=== PATIENT | female | born 1990 | race Two or more races ===

== ENCOUNTER 2025-07-04 05:40 | Day surgery (SDC) | payer MEDICAID, SELFPAY ==
[2025-07-02 08:39] VITALS: BMI 34.1
[2025-07-02 09:55] LABS: Basophils # (Auto) 0.0 Thou/mm3 (0.0-0.2); Basophils % (Auto) 0 % (0-2.5); Eosinophils # (Auto) 0.1 Thou/mm3 (0.0-0.5); Eosinophils % (Auto) 1 % (0-10); Hematocrit 41.3 % (36.0-46.0); Hemoglobin 13.6 g/dL (12.0-16.0); Immature Granulocytes Auto 0.02 Thou/mm3 (0.00-0.00); Lymphocytes # (Auto) 1.7 Thou/mm3 (1.0-4.8); Lymphocytes % (Auto) 29 % (10-50); Mean Corpuscular HGB Conc 32.9 g/dl (31.0-37.0); Mean Corpuscular Hemoglobin 30.9 pg (25.0-35.0); Mean Corpuscular Volume 94 fL (80-100); Monocytes # (Auto) 0.5 Thou/mm3 (0.0-0.8); Monocytes % (Auto) 8 % (0-12); Neutrophils # (Auto) 3.5 Thou/mm3 (1.8-7.7); Neutrophils % (Auto) 62 % (37-80); Nucleated Red Blood Cell # 0.00 Thou/mm3 (0.00-0.00); Nucleated Red Blood Cell % 0 /100 WBC (0); Platelet Count 276 Thou/mm3 (140-440); RDW Standard Deviation 43.7 fL (36.4-46.3); Red Blood Count 4.40 Miln/mm3 (4.00-5.20); White Blood Count 5.8 Thou/mm3 (3.6-11.0)
[2025-07-02 10:02] LABS: INR 1.0 (0.9-1.3); Partial Thromboplastin Time 28.1 Seconds (22.0-36.0); Prothrombin Time 10.4 Seconds (9.0-12.2)
[2025-07-02 10:06] LABS: HCG,Qualitative Serum Negative
[2025-07-02 10:08] LABS: Anion Gap 10 (7-16); BUN/Creatinine Ratio 18 Ratio (12-20); Blood Urea Nitrogen 14 mg/dL (9-23); Calcium 9.0 mg/dL (8.3-10.6); Carbon Dioxide 26.2 mMol/L (20.0-31.0); Chloride 106 mMol/L (98-107); Creatinine (Component) 0.8 mg/dL (0.6-1.3); Estimated Creatinine Clearance 105.8 mL/min (>60); Glucose 95 mg/dL (74-106); Osmolality,Calculated 283 (275-295); Potassium 4.3 mMol/L (3.4-5.1); Sodium 142 mMol/L (136-145); eGFR > 60 See Note
[2025-07-04] VITALS (7 sets, daily range): BP systolic 103–122; BP diastolic 64–86; PULSE 71–90; RESP 14–20; TEMP 36.2–36.8; O2SAT 96–100; BMI 33.6
--- NOTE | 2025-07-04 08:44 | ESOP_ITS ---
Date of Procedure 07/04/25 Pre Op Diagnosis Symptomatic varicose veins bilateral lower extremities Post Op Diagnosis Same as pre-op diagnosis Procedure Bilateral lower extremity varicose vein excisions using 23 incisions on the right and 16 incisions on the left Findings All marked varicose veins were successfully removed or disrupted Procedure Description With the patient standing the preop area or all varicose veins to be removed were carefully marked with a sharpie pen. The patient was brought to the operating room and laryngeal mask anesthesia was established. Both lower extremities were sterilely prepped and draped. The procedure was performed by making a small skin renato with a #11 blade in each of the marked areas then blun tly enlarging that incision and sequentially grasping or disrupting the veins. When all veins have been successfully removed or disrupted hemostasis was obtained and the limb was cleaned. All the incisions were closed with Steri- Strips. The leg was then wrapped with gauze Curlex and an Raman wrap. The patient woke up from anesthesia was moved to recovery in stable condition Anesthesia other (Laryngeal mask anesthesia) Implants Implants comments: None Pathology / specimen Other (Bilateral lower extremity varicose veins) Pathology comment: Bilateral lower extremity varicose veins Estimated Blood Loss 75 Condition Stable Surgeon Bao Pike MD Surgical Staff Operation Date: 07/04/25 07:30 Case Staff Anesthesiologist: Shen Cross RN First Assistant: Miladys Vences
--- NOTE | 2025-07-04 09:00 | SUR.PHASEI ---
0900: Pt. AAOx4, vitals stable, breathing unlabored, no complaint of pain or nausea, dressing to bilateral legs CDI, no active bleed noted, bilateral dorsalis pedis pulses strong and regular, cap refill to bilateral feet less than 3 seconds, pt. able to wiggle bilateral feet, report received from Jamie SYED and MD Cross.
--- NOTE | 2025-07-04 10:00 | SUR.PHASEII ---
1000: Pt. AAOx4, vital stable, breathing unlabored, complaint of slight pain, pt. stated pain is tolerable, no complaint of nausea, dressing to bilateral legs CDI, no active bleed noted, had pt. march in place for 2 minutes, assessed for bleeding, no bleeding noted, pt. ambulated to wheelchair with steady gait and minimal assist, no complications. Pt. tolerated bites of ice chips well. Gave discharge instructions to the pt. and her ride using a overlock elastic attacher, both verbalized understanding and had no further questions. Pt. left with all personal belongings.
== END 2025-07-04 10:00 | disposition home or self-care (01) ==
PROVIDERS: PCP Nurse Practitioner Family; Referring Provider Surgery Vascular Surgery; Visit Provider Surgery Vascular Surgery
PROC: (CPT 36475; principal; 2025-07-04 07:30)
DX: I83.813 Varicose veins of bilateral lower extremities with pain (principal)
CPT/HCPCS: 37766; 37765; 36415; 80048; 84703; 85025; 85610; 85730; A4217; A4649; C1894; J0131; J1100; J1171; J1885; J2250; J2405; J2704; J3010; J3490; J7050